=== PATIENT | female | born 1965 | race Caucasian/White ===

== ENCOUNTER 2025-10-16 15:37 | Emergency (ER) | payer MEDICAID, SELFPAY ==
[2025-10-16 15:37] VITALS: BMI 32.8
[2025-10-16 15:44] VITALS: BP 147/86; PULSE 108; RESP 18; TEMP 36.8; O2SAT 97
--- NOTE | 2025-10-16 16:35 | XR_ITS ---
Examination: Foot, left, 3 views Technique: AP, oblique, lateral views foot, 3 views Date and time of exam: October 16, 2025, 1636 hours INDICATIONS: Patient fell off a ladder today with injury to the foot, foot pain. FINDINGS: Moderate bunion deformity No acute foot fracture Please see the ankle report for description of fracture off the fibular tip IMPRESSION: No acute foot fracture
--- NOTE | 2025-10-16 16:35 | XR_ITS ---
EXAMINATION: Ankle, left 3 views. Technique: Ankle AP, oblique, lateral 3 views Date and time of exam: October 16, 2025, at 1637 hours INDICATIONS: Patient fell today with injury to the ankle, ankle pain. FINDINGS: 12 mm displaced fracture fragment off the fibular tip Lateral malleolar soft tissue swelling No ankle dislocation IMPRESSION: 12 mm displaced fracture fragment of the fibular tip
--- NOTE | 2025-10-16 16:36 | EDRME_ITS ---
Rapid Medical Screening Exam [facility] Arrival date/time: 10/16/25 15:37 This is a 60-year-old female that comes into the emergency room with complaints of left ankle/foot pain after stepping off a ladder. Patient states she fell onto her left ankle patient has no other injuries anywhere else. Patient denies any loss of consciousness. I have greeted and performed a focused initial assessment of this patient. Initial appropriate labs ordered at this time. A comprehensive ED assessment and evaluation of the patient and analysis of all test and completion of medical decision making process will be conducted by additional ED provider. Chief Complaint: Ankle/Foot Injury Time Seen by Provider: 10/16/25 16:30 Vital signs: Vital Signs Temperature 98.2 F 10/16/25 15:44 Pulse Rate 108 H 10/16/25 15:44 Respiratory Rate 18 10/16/25 15:44 Blood Pressure 147/86 H 10/16/25 15:44 Pulse Oximetry (%) 97 10/16/25 15:44 Oxygen Delivery Method Room Air 10/16/25 15:44 Exam: Alert and oriented, breathing even and unlabored, swelling to left ankle. Clinical Impression: Left ankle pain
--- NOTE | 2025-10-16 19:24 | PD.EDADULT ---
ED General RME/HPI General Chief complaint: Ankle/Foot Injury Stated complaint: FELL OFF OF A LADDER L ANKLE PAIN Time Seen by Provider: 10/16/25 16:30 Arrival date/time: 10/16/25 15:37 CC: Left ankle pain HPI patient fell off a ladder this afternoon experiencing pain to the lateral malleolus. Patient states no numbness or tingling in the fingers or toes. Denies loss of consciousness contact of the head neck torso or or arms. Localized pain is 6-8 on a 10 scale RME / HPI RME / HPI narrative: 10/16/25 15:37 This is a 60-year-old female that comes into the emergency room with complaints of left ankle/foot pain after stepping off a ladder. Patient states she fell onto her left ankle patient has no other injuries anywhere else. Patient denies any loss of consciousness. I have greeted and performed a focused initial assessment of this patient. Initial appropriate labs ordered at this time. A comprehensive ED assessment and evaluation of the patient and analysis of all test and completion of medical decision making process will be conducted by additional ED provider. Exam: Alert and oriented, breathing even and unlabored, swelling to left ankle. Impression: Left ankle pain Related Data Allergies Allergy/AdvReac Type Severity Reaction Status Date / Time NKA* Allergy Uncoded 10/16/25 15:39 Review of Systems Review of Systems Narrative Review of Systems: GEN: No fever, no chills, no weight loss EYES: No discharge, no visual changes, no pain HEENT: No ear pain, no congestion, no sore throat PULM: No shortness of breath, no cough, no congestion CV: No chest pain, no dyspnea on exertion, no palpitations GI: No nausea, no vomiting, no diarrhea, no pain, no constipation : No frequency, no urgency, no dysuria MUSC/SKEL: + joint pain, no back pain SKIN: No rash PSYCH: No hallucinations, no depression HEME/LYMPH: No easy bleeding or bruising tendencies NEURO: No weakness, no headache Past Medical History Social History SMOKING STATUS: Never smoker ED Exam Narrative Physical exam: [General: Obese in mild discomfort but not in any acute distress Head normocephalic HEENT: Within acceptable limits Neck is supple nontender Chest equal chest rise nontender to palpation Respiratory: Clear to auscultation no wheezes crackles or rubs CV: Rate rhythm is regular no murmurs rubs or clicks Abdomen is distended secondary to body habitus soft nontender no masses positive bowel sounds all 4 quadrants Back: No CVA tenderness no spinous process tenderness from cervical spine thoracic and lumbar spine Skin: Intact no petechiae rash induration ulceration or crepitus Extremities: Left ankle, lateral malleolus edema exquisitely tender to palpation Refill that is less than 2 seconds decreased range of motion of the ankle secondary to pain. No medial malleolus tender with palpation no calcaneal squeeze pain or Achilles tenderness. Moving all other extremities against resistance cap refill less than 2 seconds neurosensory intact Neuro: Awake alert oriented x3 Glascow coma 15 no focal deficits] Course Quality Measures none Orders Category Date Time Status XR ankle comp LT min 3V Stat Exams 10/16/25 16:35 Completed XR foot comp LT min 3V Stat Exams 10/16/25 16:35 Completed Vital Signs Vital signs: Vital Signs Temperature 98.2 F 10/16/25 15:44 Pulse Rate 108 H 10/16/25 15:44 Respiratory Rate 18 10/16/25 15:44 Blood Pressure 147/86 H 10/16/25 15:44 Pulse Oximetry (%) 97 10/16/25 15:44 Oxygen Delivery Method Room Air 10/16/25 15:44 Discharge Plan Plan Patient Disposition: HOME (Self Care) Patient condition on transfer: Stable Prescriptions/Referrals Referrals: Howard Gomez MD [Physician, Orthopedics] - In 1 week Problem List Clinical Impression: Fracture of distal end of fibula Patient/Caregiver Discharge Instructions Education Materials: ED Ankle Fracture, Distal Fibula Print Language: [place] Stand Alone Forms: Emma Award Info., Work/School Release, Patient Portal Info Letter PA/METAL HANGING HELPER Supervising Physician PA/METAL HANGING HELPER Supervising Physician: Rocky Ventura ENP MDM Clinical Information Provided by: patient Medical Records reviewed [facility] Meds/Rx considered, not ordered None Labs/Rad/Tests considered, not ordered None Chronic Illness/Social Conditions which may negatively complicate care or outcome(s)-explain: None or not applicable EKG EKG not done Labs Labs: none Imaging Imaging interpretation: interpreted by me Imaging Interpretation(s): Distal fibular fracture Medication Administration(s) none Diagnosis Differential Diagnosis ED Complaint MDM: Ankle fracture bimalleolar fracture trimalleolar fractures
== END 2025-10-16 20:06 | disposition home or self-care (01) ==
LOC: SERX 19:53
PROVIDERS: Emergency Provider Emergency Medicine
DX: S82.832A Other fracture of upper and lower end of left fibula, initial encounter for closed fracture (principal); M25.572 Pain in left ankle and joints of left foot; W11.XXXA Fall on and from ladder, initial encounter
CPT/HCPCS: 73610; 73630; 99282